=== PATIENT | male | born 1950 | race Caucasian/White ===

== ENCOUNTER → 2018-06-30 | Outpatient (CLI) | payer OTHER ==
[~2018-06-30] MED LIST: AMIO200T42 PO; CHOL100011 PO; DIAZ10TA PO; DIGO125T PO; DULO60CA7 PO; FISH1CAP PO; FOLI20CA PO; FURO40TA6 PO; LOSA50TA6 PO; METF-162 PO; METO-95 PO; OXYC10TA47 PO; POTA20TA37 PO; SPIR25TA5 PO; WARF10TA PO; WARF7.5T PO; [UNRECOGNIZED DRUG - OTHER]
[2018-06-30 15:09] LABS: ALANINE AMINOTRANSFERASE 22 U/L (12-78); ALBUMIN 4.2 g/dL (3.4-5.0); ANION GAP 7 mmol/L (5-15); CALCIUM 9.3 mg/dL (8.5-10.1); CHLORIDE 101 mmol/L (98-107); CREATININE 0.99 mg/dL (0.7-1.3)
[2018-06-30 15:11] LABS: ALKALINE PHOSPHATASE 75 U/L (45-117); TOTAL PROTEIN 7.5 g/dL (6.4-8.2)
[2018-06-30 15:14] LABS: BASOPHILS # (AUTO) 0.02 x10^3/uL (0-0.1); BASOPHILS % (AUTO) 0 % (0-1); EOSINOPHILS # (AUTO) 0.07 x10^3/uL (0-0.4); EOSINOPHILS % (AUTO) 1 % (1-7); LYMPHOCYTES # (AUTO) 3.43 x10^3/uL (1-3.4); LYMPHOCYTES % (AUTO) 40 % (22-44); MD NO; MEAN CORPUSCULAR HEMOGLOBIN 34.3 pg (27.5-34.5); MEAN CORPUSCULAR HGB CONC 34.5 g/dL (33.2-36.2); MEAN CORPUSCULAR VOLUME 99.3 fL (81-97); MEAN PLATELET VOLUME 8.6 fL (7.4-10.4); MONOCYTES # (AUTO) 0.57 x10^3/uL (0.2-0.8); MONOCYTES % (AUTO) 7 % (2-9); NEUTROPHILS # (AUTO) 4.54 x10^3/uL (1.8-6.8); NEUTROPHILS % (AUTO) 53 % (42-75); PLATELET COUNT 188 x10^3/uL (130-400); RED BLOOD COUNT 5.09 x10^6/uL (4.38-5.82); RED CELL DISTRIBUTION WIDTH 12.6 % (9.4-14.8)
[2018-06-30 16:46] LABS: INTERNATIONAL NORMALIZED RATIO 2.5 (0.93-1.1); PROTHROMBIN TIME 25.3 Seconds (9.6-11.5)
== END | disposition home or self-care (01) ==
LOC: STAR 13:45
PROVIDERS: ATTEND Neurological Surgery
DX: Z01.818 Encounter for other preprocedural examination (principal); M48.062 Spinal stenosis, lumbar region with neurogenic claudication; I48.91 Unspecified atrial fibrillation; I45.10 Unspecified right bundle-branch block
CPT/HCPCS: 36415; 80053; 85025; 85610; 85730; 93005

== ENCOUNTER → 2019-03-12 | Outpatient (CLI) | payer OTHER ==
[~2019-03-12] MED LIST changes: +LOSA50TA14 PO; -LOSA50TA6 PO; +MORPHINE IR PO; +MORPHINE PO; +MULTIVITAMIN PO; +PRED5TAB PO; +PREG150C PO; +XELJANZ PO; +glargine insulin SQ; +insulin SQ
== END | disposition home or self-care (01) ==
LOC: CVU 15:30
PROVIDERS: ATTEND Orthopaedic Surgery
DX: I08.3 Combined rheumatic disorders of mitral, aortic and tricuspid valves (principal)
CPT/HCPCS: 93306